=== PATIENT | female | born 1930 | race Hispanic/Latino ===

== ENCOUNTER 2019-07-11 05:29 | Day surgery (SDC) | payer MEDICARE ==
[~2019-07-11] VITALS: Ht 149.9 cm; Wt 76.2 kg
[~2019-07-11 05:29] MED LIST: ALBU8.5H8 IH; ALPR0.5T8 PO; FENO145T37 PO; GLIP10TA9 PO; GUAI10SY3 PO; LEVO75TA10 PO; LINA5TAB PO; METF-446 PO; OXYB5TAB10 PO; ROSU5TAB PO
[2019-07-11] MEDS ORDERED: SODIUM CHLORIDE 0.9% 1000ML 1,000 ML IV ONE (05:43)
[2019-07-11 06:32] VITALS: BP 168/82
[2019-07-11] MEDS ORDERED: POLY17PO4 PO (06:46)
[2019-07-11] MEDS ORDERED: LUBI24CA2 PO (06:46)
[2019-07-11] MEDS ORDERED: BISA5TAB12 PO (06:46)
[2019-07-11] MEDS ORDERED: TRAZ-185 PO (06:46)
[2019-07-11] MEDS ORDERED: INSU100C14 SQ (06:46)
[2019-07-11] MEDS ORDERED: HYDR-4060 PO (06:46)
[2019-07-11] MEDS ORDERED: INSU100I21 SQ (06:46)
[2019-07-11] MEDS ORDERED: MIRA25TA PO (06:46)
[2019-07-11] MEDS ORDERED: PROPOFOL 10 MG/ML 20ML VIAL IV ONE (07:20)
[2019-07-11] MEDS ORDERED: LIDOCAINE HCL 1% 20 ML VIAL ONE (07:20)
[2019-07-11 07:46] VITALS: BP 90/51
[2019-07-11 07:50] VITALS: BP 92/56
[2019-07-11 08:04] VITALS: BP 165/104
[2019-07-11 08:06] VITALS: BP 159/76
== END 2019-07-11 08:18 | disposition home or self-care (01) ==
LOC: ENDO 05:29 → DAH 05:29 → ENDO 08:18
PROVIDERS: ATTEND Internal Medicine
DX: K57.30 Diverticulosis of large intestine without perforation or abscess without bleeding (principal); K64.0 First degree hemorrhoids; K59.00 Constipation, unspecified; Z79.899 Other long term (current) drug therapy; Z72.89 Other problems related to lifestyle; E11.9 Type 2 diabetes mellitus without complications; M81.0 Age-related osteoporosis without current pathological fracture; E03.9 Hypothyroidism, unspecified; I10 Essential (primary) hypertension; Z90.49 Acquired absence of other specified parts of digestive tract; Z90.710 Acquired absence of both cervix and uterus; Z98.890 Other specified postprocedural states; Z88.0 Allergy status to penicillin; Z79.4 Long term (current) use of insulin; Z82.49 Family history of ischemic heart disease and other diseases of the circulatory system; Z82.5 Family history of asthma and other chronic lower respiratory diseases
CPT/HCPCS: 45378; 82948 ×2; 93005; A4606; J2704; J7030

== ENCOUNTER 2019-09-29 01:58 | Inpatient (IN) | payer MEDICARE ==
[~2019-09-29] VITALS: Ht 149.9 cm; Wt 72.3 kg
[~2019-09-29 01:58] MED LIST changes: -ALBU8.5H8 IH; +BISA5TAB12 PO; -GLIP10TA9 PO; -GUAI10SY3 PO; +HYDR-4060 PO; +INSU100C14 SQ; +INSU100I21 SQ; +LUBI24CA2 PO; -METF-446 PO; +MIRA25TA PO; -OXYB5TAB10 PO; +POLY17PO4 PO; -ROSU5TAB PO; +TRAZ-185 PO
[2019-09-29 02:19] LABS: APPEARANCE,URINE Cloudy (CLEAR); BILIRUBIN,URINE Negative (NEGATIVE); COLOR,URINE Yellow (YELLOW); GLUCOSE, URINE (UA) Negative (NEGATIVE); KETONES,URINE Negative (NEGATIVE); LEUKOCYTE ESTERASE ,URINE Small (NEGATIVE); NITRATE,URINE Negative (NEGATIVE); OCCULT BLOOD,URINE Negative (NEGATIVE); PROTEIN,URINE Negative (NEGATIVE)
[2019-09-29 02:32] LABS: BASOPHILS % (AUTO) 1.3 % (0.0-5.0); EOSINOPHILS % (AUTO) 3.3 % (0.0-8.0); HEMATOCRIT 36.4 % (36-48); LYMPHOCYTES % (AUTO) 42.1 % (21.0-51.0); MEAN CORPUSCULAR HEMOGLOBIN 31.2 pg (27.0-33.0); MEAN CORPUSCULAR HGB CONC 33.8 g/dL (32.0-36.0); MEAN CORPUSCULAR VOLUME 92.3 fL (79-99); MONOCYTES % (AUTO) 7.7 % (3.0-13.0); NEUTROPHILS % (AUTO) 45.6 % (40.0-77.0); NUCLEATED RED BLOOD CELLS 0.1 % (0.0-0.19); PLATELET COUNT (AUTO) 310 K/uL (130-400); RED BLOOD CELL COUNT(AUTO) 3.95 MIL/uL (4.00-5.50); RED CELL DISTRIBUTION WIDTH 14.3 % (11.0-15.5); WHITE BLOOD COUNT (AUTO) 7.6 K/uL (4.8-10.8)
[2019-09-29 02:37] LABS: BACTERIA,URINE None Seen /HPF (None Seen); RBC,URINE None Seen /HPF (0-1); SQUAMOUS EPITHELIAL CELL,UR Few /HPF (0-2)
[2019-09-29 02:44] LABS: CREATININE 1.1 mg/dL (0.5-1.5)
[2019-09-29 02:46] LABS: INR 0.97 (0.85-1.15); PARTIAL THROMBOPLASTIN TIME 26.7 SEC (26.3-35.5); PROTHROMBIN TIME 10.2 SEC (9.6-11.6)
[2019-09-29 02:48] LABS: ALBUMIN 3.7 g/dL (3.5-5.0); BILIRUBIN,TOTAL 0.3 mg/dL (0.2-1.0); TOTAL PROTEIN, SERUM 7.4 g/dL (6.0-8.3)
[2019-09-29] MEDS ORDERED: PHENAZOPYRIDINE HCL 200 MG TABLET ONE (02:53)
[2019-09-29 02:56] LABS: B-TYPE NATRIURETIC PEPTIDE 14 pg/mL (0-100)
[2019-09-29] MEDS ORDERED: CEFTRIAXONE SODIUM 1 GM ONE (03:20)
[2019-09-29] MEDS ORDERED: HYDROXYZINE HCL 25 MG TABLET ONE (03:42)
[2019-09-29] MEDS ORDERED: SODIUM CHLORIDE 0.9% 1000ML 1,000 ML IV ONE (04:57)
[2019-09-29] MEDS ORDERED: LORAZEPAM 2 MG/ML 1 ML VIAL ONE (05:09)
[2019-09-29] MEDS ORDERED: ACETAMINOPHEN 325 MG TAB PO PRN (05:45)
[2019-09-29 08:00] VITALS: BP 132/66
[2019-09-29] MEDS: SODIUM CHLORIDE 0.9% 1000ML 1,000 ML IV SCH ×2 (10:28→21:31)
[2019-09-29] MEDS: LORAZEPAM 0.5 MG TABLET PO PRN ×2 (10:35→14:45)
[2019-09-29 11:00] VITALS: BP 137/64
[2019-09-29] MEDS: INSULIN R PO SS1 SQ SCH ×3 (11:30→21:00)
--- NOTE | 2019-09-29 15:55 | NUR ---
INITIAL: Met w pt and son Xavier this afternoon to discuss dcp. Pt mentions that she lives w her son Parmjit. She has a provider M-F 9a-3pm and Sat 9a-11am. She mentions that once her provider leaves for the day her granddtr stays w her as her son Parmjit works during the day. Pt mentions that she has at home a rollator, sh chair and wc. Per pt she feels safe and comfortable to return home at vt. CM to continue to follow and wait for Md recommendations. Addendum: 09/29/19 at 1604 by OSMIN PEÑA Amended: Links added.
[2019-09-29 16:00] VITALS: BP 143/72
--- NOTE | 2019-09-29 19:30 | NUR ---
RECEIVED PHONE CALL FROM DR EBEN LEZAMA FOR UPDATE ON PATIENT UPDATE GIVEN AND ORDERS RECEIVED FOR REQUIP PO AT AND ATIVAN CHANGED TO IV
[2019-09-29] MEDS ORDERED: LORAZEPAM 2 MG/ML 1 ML VIAL IVP PRN (19:45)
[2019-09-29 20:38] VITALS: BP 102/59
[2019-09-29] MEDS: CEFTRIAXONE SODIUM 1 GM IVP SCH (21:31)
[2019-09-29] MEDS: ROPINIROLE HCL 0.25 MG TABLET PO SCH (21:31)
[2019-09-29 23:55] VITALS: BP 138/80
[2019-09-30 04:03] VITALS: BP 149/72
[2019-09-30 05:04] LABS: BASOPHILS % (AUTO) 1.3 % (0.0-5.0); EOSINOPHILS % (AUTO) 4.8 % (0.0-8.0); HEMATOCRIT 36.6 % (36-48); LYMPHOCYTES % (AUTO) 23.4 % (21.0-51.0); MEAN CORPUSCULAR HEMOGLOBIN 30.9 pg (27.0-33.0); MEAN CORPUSCULAR HGB CONC 33.3 g/dL (32.0-36.0); MEAN CORPUSCULAR VOLUME 92.8 fL (79-99); MONOCYTES % (AUTO) 8.1 % (3.0-13.0); NEUTROPHILS % (AUTO) 62.4 % (40.0-77.0); PLATELET COUNT (AUTO) 306 K/uL (130-400); RED BLOOD CELL COUNT(AUTO) 3.94 MIL/uL (4.00-5.50); RED CELL DISTRIBUTION WIDTH 14.4 % (11.0-15.5); WHITE BLOOD COUNT (AUTO) 5.8 K/uL (4.8-10.8)
[2019-09-30 05:18] LABS: ALBUMIN 2.9 g/dL (3.5-5.0); BILIRUBIN,TOTAL 0.4 mg/dL (0.2-1.0); CREATININE 0.9 mg/dL (0.5-1.5); POTASSIUM 4.4 mmol/L (3.5-5.1); TOTAL PROTEIN, SERUM 6.2 g/dL (6.0-8.3)
[2019-09-30] MEDS: INSULIN R PO SS1 SQ SCH ×4 (05:42→21:00)
[2019-09-30 08:00] VITALS: BP 155/76
[2019-09-30] MEDS: LUBIPROSTONE 24 MCG CAP PO SCH ×2 (09:47→21:07)
[2019-09-30] MEDS: FENOFIBRATE NANOCRYSTALLIZED 145 MG TAB PO SCH (09:47)
[2019-09-30] MEDS: BISACODYL 5 MG TABLET.DR PO SCH ×2 (09:47→21:07)
[2019-09-30] MEDS: LEVOTHYROXINE 75 MCG TABLET PO SCH (09:49)
[2019-09-30] MEDS: SODIUM CHLORIDE 0.9% 1000ML 1,000 ML IV SCH ×2 (09:49→21:54)
[2019-09-30] MEDS: POLYETHYLENE GLYCOL 3350 17 GM POWD.PACK PO SCH (09:49)
--- NOTE | 2019-09-30 10:00 | NUR ---
LEE CATHETER CLAMPED FOR BLADDER TRAINING
[2019-09-30 11:00] VITALS: BP 116/42
--- NOTE | 2019-09-30 12:00 | NUR ---
LEE UNCLAMPED WITH 200 CC RETURN IN BAG. LEE RECLAMPED
--- NOTE | 2019-09-30 14:00 | NUR ---
LEE CATHETER UNCLAMPED WITH 150 CC RETURN , LEE RECLAMPED.
[2019-09-30 16:00] VITALS: BP 128/75
--- NOTE | 2019-09-30 17:31 | NUR ---
Patient did well with bladder training , Hunter d/c , patient tolerated it procedure well due to void by 003
[2019-09-30 20:13] VITALS: BP 107/60
[2019-09-30] MEDS: CEFTRIAXONE SODIUM 1 GM IVP SCH (21:07)
[2019-09-30] MEDS: ROPINIROLE HCL 0.25 MG TABLET PO SCH (21:07)
[2019-09-30] MEDS: LORAZEPAM 0.5 MG TABLET PO PRN (21:54)
[2019-09-30 23:14] VITALS: BP 139/69
[2019-10-01 03:21] VITALS: BP 123/66
[2019-10-01] MEDS: SODIUM CHLORIDE 0.9% 1000ML 1,000 ML IV SCH (04:43)
[2019-10-01] MEDS: INSULIN R PO SS1 SQ SCH (05:19)
[2019-10-01] MEDS: LEVOTHYROXINE 75 MCG TABLET PO SCH (05:50)
[2019-10-01 07:30] VITALS: BP 111/71
[2019-10-01] MEDS: FENOFIBRATE NANOCRYSTALLIZED 145 MG TAB PO SCH (09:21)
[2019-10-01] MEDS: POLYETHYLENE GLYCOL 3350 17 GM POWD.PACK PO SCH (09:21)
[2019-10-01] MEDS: BISACODYL 5 MG TABLET.DR PO SCH (09:21)
[2019-10-01] MEDS: LUBIPROSTONE 24 MCG CAP PO SCH (09:21)
--- NOTE | 2019-10-01 11:45 | NUR ---
PATIENT DISCHARGE PATIENT DISCHARGED, IV DISCONTINUED, CATHLON INTACT, BLEEDING CONTROLLED, PATIENT TOLERATED WITHOUT INCIDENT.
== END 2019-10-01 12:00 | disposition home or self-care (01) | DRG 690 ==
LOC: EDH 01:58 → EDHIP 03:55 → 3AH 07:59
PROVIDERS: ADMIT Internal Medicine Nephrology; ATTEND Internal Medicine Nephrology
DX: N39.0 Urinary tract infection, site not specified (principal); E11.9 Type 2 diabetes mellitus without complications; G25.81 Restless legs syndrome; F41.1 Generalized anxiety disorder; E03.9 Hypothyroidism, unspecified; I10 Essential (primary) hypertension; Z90.710 Acquired absence of both cervix and uterus; Z88.0 Allergy status to penicillin
CPT/HCPCS: 36415; 80053; 81001; 82550; 82948; 83880; 84484; 85025; 85610; 85730; 87088; 93005; G0378; J0696; J1815; J2060; J7030